=== PATIENT | male | born 1970 | race Caucasian/White ===

== ENCOUNTER → 2024-08-29 12:35 | Outpatient (REF) | payer OTHER, SELFPAY | LOC: RCS 12:35 | PROVIDERS: ATTENDING PHYSICIAN Internal Medicine; FAMILY PHYSICIAN Physician Assistant | DX: I42.8 Other cardiomyopathies (principal) | CPT/HCPCS: 93307; Q9957 ==

== ENCOUNTER → 2024-10-19 14:14 | Outpatient (REF) | payer OTHER, SELFPAY | LOC: RAD 14:14 | PROVIDERS: ATTENDING PHYSICIAN Physician Assistant; REFERRING PHYSICIAN Internal Medicine | DX: R79.89 Other specified abnormal findings of blood chemistry (principal); R10.10 Upper abdominal pain, unspecified | CPT/HCPCS: 76700 ==

== ENCOUNTER 2024-11-13 09:30 | Inpatient (IN) | payer OTHER, SELFPAY ==
[2024-11-13] VITALS (8 sets, daily range): BP systolic 103–125; BP diastolic 66–78; BMI 31.0
--- NOTE | 2024-11-13 10:46 | W.PN.CD ---
Addendum entered and electronically signed by Rafa Rodriguez MD 11/13/24 15:35:
I saw and examined the patient.
The ALTERATIONS MANAGER's note was reviewed and I agree with the note.
Comment: Tele, ekg ok. Tolerating sotalol so far.
Original Note:
Today's Communication / Plan
-
This is the summary. See scanned H&P.
Sotalol loading per protocol
Impression / Plan
-
IMPRESSION/PLAN: 54M with NICM (LVEF 35-40%) [id number] cardiac arrest status post [employer] dual-chamber ICD ([facility]), ICD shock 04/23/2021 for recurrent VT, VT ablation 01/07/2022, ambulatory dysfunction secondary to anoxic brain injury
likely related to out of hospital cardiac arrest, and seizure disorder who presents for sotalol loading for VT
Primary director consumer affairs: Dr. Ponce
Ventricular tachycardia
-He was on amiodarone and had elevated LFTs and an abnormal TSH (concern for amiodarone toxicity)
-Last dose of amiodarone 10/19/2024
-Sotalol loading per protocol, baseline QTC 427
-S/P VT ablation 01/07/2022
NICM, chronic
-He does not appear volume overloaded on exam
-GDMT as tolerated
-SGLT2i: Empagliflozin 10 mg daily
-RADHA/ARB/ARNI: None due to hypotension
-ICD: Implanted, [employer]
-Daily weight and low-sodium diet
[employer] ICD
Hypothyroidism, managed by endocrine
Seizure disorder
Chronic ambulatory dysfunction
Physical Exam
Vital Signs/Labs
Vital Signs
Temp Pulse Resp BP Pulse Ox
97.6 F 73 16 103/73 99
11/13/24 09:54 11/13/24 09:55 11/13/24 09:54 11/13/24 09:53 11/13/24 09:54
11/12/24 11/13/24 11/14/24
06:59 06:59 06:59
Actual Weight 95.1 kg
Physical Exam
Constitutional: No acute distress and Comfortable
EENT: Anicteric and Moist mucous membranes
Cardiovascular: Rhythm & rate is regular, Pedal edema is absent and S1S2 is normal
Respiratory: Respiratory effort normal and Lungs clear to auscul.
GI: Soft, Distention absent, Flat, Non tender and Normal bowel sounds
Neuro/Psych: AO x 3
Other: Skin (warm and dry)
Data Reviewed
-
Date of Service: November 13, 2024
EKG: Report Reviewed by me
Labs: Labs Reviewed by me
Old Records: Reviewed
--- NOTE | 2024-11-13 11:12 | PTCARENOTE ---
Received the patient as a direct admit. The patient is aaox3, vss, no complaints of pain. He ambulated in the room without difficulty. A-pacing is noted on the monitor. ECG, medication reconciliation and admission completed. I oriented him to his
room, His is at the bedside
--- NOTE | 2024-11-13 11:39 | VATNOTE ---
Attempts to place INT unsuccessful.Another VAT nurse to attempt
[2024-11-13 12:05] LABS: Blood Urea Nitrogen 15 mg/dl (9-20); Calcium 9.2 mg/dl (8.4-10.2); Carbon Dioxide 27 mmol/L (22-30); Chloride 105 mmol/L (98-107); Estimated Creatinine Clearance > 125 ml/min; Glucose 122 mg/dl (70-99); Potassium 4.6 mmol/L (3.5-5.1); Sodium 138 mmol/L (135-145); eGFR > 60.00
[2024-11-13] MEDS: BETAPACE 120 MG PO ×2 (12:21→22:23)
--- NOTE | 2024-11-13 12:54 | CM ---
Chart reviewed. Patient is independent of ADLS, lives with his in a [address], 4 LILY, 0 DME. Plan is for the patient to return home. CM to follow
--- NOTE | 2024-11-13 14:31 | PTCARENOTE ---
Baseline QTc - 427
1st post QTC - 461
[2024-11-13] MEDS: KEPPRA 1500 MG PO (19:57)
--- NOTE | 2024-11-13 21:07 | PTCARENOTE ---
pt. received at change of shift. pt seen and assessed in room. pt. aox3, tele reading a paced. RN explained plan of care to patient regarding sotalol initiation. Pt. verifies understanding. Call mario within reach. Continuing to monitor at this time.
[2024-11-13] MEDS: TOPROL XL 50 MG PO (21:17)
[2024-11-14] VITALS (7 sets, daily range): BP systolic 104–120; BP diastolic 48–77; BMI 30.6
[2024-11-14] MEDS: FARXIGA 10 MG PO (08:21)
[2024-11-14] MEDS: ASPIR LOW (ENTERIC COATED) 81 MG PO (08:21)
[2024-11-14] MEDS: VITAMIN D3 (cholecalciferol) 10 MCG PO (08:21)
[2024-11-14] MEDS: KEPPRA 1500 MG PO ×2 (08:22→19:25)
[2024-11-14] MEDS: FLORINEF 0.05 MG PO (08:22)
[2024-11-14] MEDS: OSCAL CAL 500 500 MG PO (08:22)
[2024-11-14] MEDS: DELTASONE 30 MG PO (08:22)
--- NOTE | 2024-11-14 09:36 | PTCARENOTE ---
The patient is aaox3, vss, a-pacing with an occasional ventricular rhythm is noted on the monitor. He has no complaints. Sotalol loading expectations review with the patient.
[2024-11-14] MEDS: BETAPACE 120 MG PO ×2 (10:04→21:03)
--- NOTE | 2024-11-14 12:18 | PTCARENOTE ---
3rd dose Qtc is 463
--- NOTE | 2024-11-14 13:40 | W.PN.CD ---
Addendum entered and electronically signed by Rafa Rodriguez MD 11/14/24 15:53:
I saw and examined the patient.
The JOB SPOTTER's note was reviewed and I agree with the note.
Comment: Doing well with sotalol loading.
Original Note:
Today's Communication / Plan
-
Continue sotalol with close monitoring per protocol (telemetry and EKG's).
Impression / Plan
-
IMPRESSION/PLAN: 54M with NICM (LVEF 35-40%) [id number] cardiac arrest status post [employer] dual-chamber ICD ([facility]), ICD shock 04/23/2021 for recurrent VT, VT ablation 01/07/2022, ambulatory dysfunction secondary to anoxic brain injury
likely related to out of hospital cardiac arrest, and seizure disorder who presents for sotalol loading for VT
Primary inspector machine parts: Dr. Ponce
Ventricular tachycardia
-He was on amiodarone and had elevated LFTs and an abnormal TSH (concern for amiodarone toxicity)
-Last dose of amiodarone 10/19/2024
-he is tolerating sotalol without issue. QTC is acceptable. Continue sotalol initiation per protocol.
-S/P VT ablation 01/07/2022
NICM, chronic
-appears euvolemic
-GDMT as tolerated
-SGLT2i: Empagliflozin 10 mg daily
-RADHA/ARB/ARNI: None due to hypotension
-ICD: Implanted, [employer]
-Daily weight and low-sodium diet
[employer] ICD
Hypothyroidism, managed by endocrine
Seizure disorder
Chronic ambulatory dysfunction
Physical Exam
Vital Signs/Labs
Vital Signs
Temp Pulse Resp BP Pulse Ox
97.5 F 65 20 109/75 100
11/14/24 11:17 11/14/24 11:19 11/14/24 11:17 11/14/24 11:19 11/14/24 11:17
11/13/24 11/14/24 11/15/24
06:59 06:59 06:59
Actual Weight 94 kg
11/13/24 11:35
Physical Exam
Constitutional: No acute distress
EENT: Anicteric
Cardiovascular: Rhythm & rate is regular
Respiratory: Respiratory effort normal and Lungs clear to auscul.
Neuro/Psych: AO x 3
Other: Skin (warm and dry)
Data Reviewed
-
Date of Service: November 14, 2024
EKG: Tracing Personally Visualized and interpreted (stable QTC) and Other (tele a paced)
[2024-11-14] MEDS: TOPROL XL 50 MG PO (19:25)
--- NOTE | 2024-11-14 22:05 | PTCARENOTE ---
pt. received at change of shift. pt seen and assessed in room. pt aox3, no complaints of pain at this time. tele reading apacing w occ. ventricular rhythm. 4th dose of sotalol done at 9pm, EKG to be done at 11pm. This RN explained plan of care, pt
verbalizes understanding. call mario within reach. continuing to monitor at this time.
[2024-11-15 03:18] VITALS: BP 117/67
[2024-11-15 03:20] VITALS: BP 117/67
[2024-11-15 03:23] VITALS: BMI 30.7
[2024-11-15 07:58] VITALS: BP 114/74
--- NOTE | 2024-11-15 08:46 | W.PN.CD ---
Today's Communication / Plan
-
-Tolerating sotalol, QTC is acceptable; will receive 5th dose of sotalol this a.m.
-Will have EP Cardiology review telemetry; if stable will discharge to home today.
Impression / Plan
-
IMPRESSION/PLAN: 54M with NICM (LVEF 35-40%) [id number] cardiac arrest status post [employer] dual-chamber ICD [facility]), ICD shock 04/23/2021 for recurrent VT, VT ablation 01/07/2022, ambulatory dysfunction secondary to anoxic brain injury
likely related to out of hospital cardiac arrest, and seizure disorder who presents for sotalol loading for VT
Primary Glassblower: Dr. Ponce
Ventricular tachycardia
-He was on amiodarone and had elevated LFTs and an abnormal TSH (concern for amiodarone toxicity)
-S/P VT ablation 01/07/2022
-Last dose of amiodarone 10/19/2024
-Tolerating sotalol, QTC is acceptable; will receive 5th dose of sotalol this a.m.
-Will have EP Cardiology review telemetry; if stable will discharge to home today.
Chronic HFrEF/NICM:
-Stable/compensated.
-Continue GDMT as tolerated
-SGLT2i: Empagliflozin 10 mg daily
-RADHA/ARB/ARNI: None due to hypotension
-ICD: Implanted, [employer] ICD - stable.
Hypothyroidism, managed by endocrine.
Seizure disorder -stable on Keppra.
Chronic ambulatory dysfunction -at baseline.
Physical Exam
Vital Signs/Labs
Vital Signs
Temp Pulse Resp BP Pulse Ox
97.6 F 68 20 117/67 97
11/15/24 08:02 11/15/24 07:00 11/15/24 08:02 11/15/24 03:20 11/15/24 08:02
11/14/24 11/15/24 11/16/24
06:59 06:59 06:59
Actual Weight 94 kg 94.1 kg
11/13/24 11:35
Physical Exam
Constitutional: No acute distress and Comfortable
EENT: Anicteric
Cardiovascular: Rhythm & rate is regular, Pedal edema is absent, Systolic murmur absent and S1S2 is normal
Respiratory: Respiratory effort normal and Lungs clear to auscul.
GI: Soft
Neuro/Psych: AO x 3
Other: Skin (Warm, dry, intact)
Data Reviewed
-
Date of Service: November 15, 2024
EKG: Tracing Personally Visualized and interpreted (Telemetry: AV paced)
Labs: Labs Reviewed by me
[2024-11-15] MEDS: FLORINEF 0.05 MG PO (08:52)
[2024-11-15] MEDS: ASPIR LOW (ENTERIC COATED) 81 MG PO (08:52)
[2024-11-15] MEDS: VITAMIN D3 (cholecalciferol) 10 MCG PO (08:52)
[2024-11-15] MEDS: KEPPRA 1500 MG PO (08:53)
[2024-11-15] MEDS: DELTASONE 30 MG PO (08:54)
[2024-11-15] MEDS: BETAPACE 120 MG PO (08:54)
[2024-11-15] MEDS: OSCAL CAL 500 500 MG PO (08:54)
[2024-11-15] MEDS: FARXIGA 10 MG PO (09:00)
[2024-11-15 11:21] VITALS: BP 112/70
--- NOTE | 2024-11-15 12:25 | W.DS.TRANS ---
DC Summary - Program Director/Morning Show Host
-
Discharge Instructions:
Sleep Apnea Risk Intermediate
Discharge Diagnosis/Procedures Sotalol initiation
Diet Restrict fluids to 48 oz,2 Gram Sodium
Activity No restrictions
Driving Restrictions As prior to admission
Bathing Restrictions None
Specialty Instructions Weigh Daily
Instructions:
Stand-Alone Forms:
Changes to Home Medications: Yes
Discharge Medications:
DC Medications w/original date entered in [employer]
aspirin 81 mg tablet,delayed release 81 mg PO DAILY Blood clot prevention/tx 10/19/21
docusate sodium 100 mg capsule 100 mg PO HS Constipation 10/19/21
levetiracetam 750 mg tablet (Keppra) 1,500 mg PO BID Neurological Condition 10/19/21
fludrocortisone 0.1 mg tablet 0.05 mg PO DAILY Anti-Inflammatory 01/07/22
Calcium + D 600 mg PO Daily Supplement 11/13/24
empagliflozin 10 mg tablet (Jardiance) 10 mg PO DAILY Heart Disease/Condition 11/13/24
prednisone 10 mg tablet 30 mg PO DAILY Anti-Inflammatory 11/13/24
metoprolol succinate 50 mg tablet,extended release 24 hr 50 mg PO HS #30 tabs 11/15/24
sotalol 120 mg tablet 120 mg PO Q12H #60 tabs 11/15/24
Home Medication Changes
sotalol started, metoprolol decreased
Pending Results: No
== END 2024-11-15 14:41 | disposition home or self-care (01) | DRG 309 ==
LOC: IVU 09:30
PROVIDERS: Nurse Practitioner Gerontology; ADMITTING PHYSICIAN Internal Medicine; FAMILY PHYSICIAN Physician Assistant
PROC: 3E033RZ Introduction of Antiarrhythmic into Peripheral Vein, Percutaneous Approach (ICD-10-PCS; 2024-11-13)
DX: I47.20 Ventricular tachycardia, unspecified (principal); I42.8 Other cardiomyopathies; I50.22 Chronic systolic (congestive) heart failure; E03.9 Hypothyroidism, unspecified; G40.909 Epilepsy, unspecified, not intractable, without status epilepticus; Z95.810 Presence of automatic (implantable) cardiac defibrillator
CPT/HCPCS: 80048; 87070; 93005

== ENCOUNTER → 2025-06-21 07:44 | Outpatient (REF) | payer OTHER, SELFPAY | LOC: HWRAD 07:44 | PROVIDERS: ATTENDING PHYSICIAN Physician Assistant; FAMILY PHYSICIAN Physician Assistant | DX: E05.90 Thyrotoxicosis, unspecified without thyrotoxic crisis or storm (principal) | CPT/HCPCS: 76536 ==

== ENCOUNTER → 2025-08-21 09:26 | Outpatient (REF) | payer OTHER, SELFPAY ==
--- NOTE | 2025-08-21 10:30 | CARDSERVLU ---
Echocardiogram with [facility] completed after protocol screening completed. Allergies verified.
Patent IV site: __Rt hand___
IV site flushed with 0.9% NaCl pre and post administration.
Diluted bolus method utilized to enhance visualization of ventricular morris.
Total volume given: ___3.5_ mL
Patient tolerated all procedures well without complications.
== END ==
LOC: RCS 09:26
PROVIDERS: ATTENDING PHYSICIAN Internal Medicine; FAMILY PHYSICIAN Physician Assistant
DX: I42.8 Other cardiomyopathies (principal)
CPT/HCPCS: 93306

== ENCOUNTER → 2025-10-14 10:50 | Outpatient (REF) | payer OTHER, SELFPAY | LOC: HWRAD 10:50 | PROVIDERS: ATTENDING PHYSICIAN Internal Medicine Critical Care Medicine; FAMILY PHYSICIAN Physician Assistant | DX: R91.8 Other nonspecific abnormal finding of lung field (principal) | CPT/HCPCS: 71250 ==